=== PATIENT | female | born 1960 | race Caucasian/White ===

== ENCOUNTER 2016-09-27 18:30 | Emergency (ER) | END 2016-09-27 21:17 | disposition home or self-care (01) | DX: S33.5XXA Sprain of ligaments of lumbar spine, initial encounter (principal); E66.9 Obesity, unspecified; W01.0XXA Fall on same level from slipping, tripping and stumbling without subsequent striking against object, initial encounter; Y92.512 Supermarket, store or market as the place of occurrence of the external cause; Z68.31 Body mass index [BMI] 31.0-31.9, adult | CPT/HCPCS: 72100; 96372; 99284; J1885 ==